=== PATIENT | female | born 1965 | race Two or more races ===

== ENCOUNTER 2018-09-17 16:13 | Emergency (ER) | payer OTHER ==
[~2018-09-17] VITALS: Ht 157.5 cm; Wt 99.8 kg
[2018-09-17 22:05] VITALS: BP 133/69
== END 2018-09-17 22:09 | disposition home or self-care (01) ==
LOC: ED 21:17
DX: K52.9 Noninfective gastroenteritis and colitis, unspecified (principal); E11.8 Type 2 diabetes mellitus with unspecified complications; Z90.49 Acquired absence of other specified parts of digestive tract; Z79.4 Long term (current) use of insulin
CPT/HCPCS: 36415; 80053; 83690; 85025; 96361; 96372; 96374; 99283; J1170; J2550; J7030; J7120